=== PATIENT | male | born 1955 | race Two or more races ===

== ENCOUNTER 2021-02-17 07:45 | Inpatient (IN) | payer OTHER ==
[~2021-02-17] VITALS: Ht 170.2 cm; Wt 108.9 kg
[2021-02-18] MEDS ORDERED: AMLODIPINE PO (08:55)
[2021-02-18] MEDS ORDERED: TENORMIN25 MG PO (08:55)
[2021-02-18] MEDS ORDERED: CARDESARTAN PO (08:57)
[2021-02-25] MEDS ORDERED: CLONAZEPAM0.5 MG (07:54)
[2021-02-25] MEDS ORDERED: BUPROPION XL150 MG (07:54)
[2021-02-25] MEDS ORDERED: OLANZAPINE-FLU1 EAC3 (07:54)
[2021-02-25] MEDS ORDERED: ADULT ASPIRIN81 MG (07:55)
[2021-02-25] MEDS ORDERED: PANADOL EXTRA500 MG (07:55)
[2021-02-25] MEDS ORDERED: FENOFIBRATE145 MG (07:55)
[2021-02-25] MEDS ORDERED: AMLODIPINE BESY10 MG (07:55)
[2021-02-25] MEDS ORDERED: TAMSULOSIN HCL0.4 MG (07:56)
[2021-02-25] MEDS ORDERED: OXYBUTYNIN CHLO10 MG (07:56)
[2021-02-25] MEDS ORDERED: CANDESARTAN-HC1 EAC1 (07:56)
[2021-02-27] MEDS ORDERED: ELIQUIS2.5 MG PO (11:37)
[2021-02-27] MEDS ORDERED: PERCOCET 5-3251 EACH PO (11:37)
[2021-02-27] MEDS ORDERED: DUI500 PO (11:37)
== END 2021-02-27 14:52 | DRG 470 ==
LOC: O/R 02-25 05:41 → SURH 02-25 05:41
PROVIDERS: ADMIT Orthopaedic Surgery; ATTEND Orthopaedic Surgery
PROC: 0SRD0J9 Replacement of Left Knee Joint with Synthetic Substitute, Cemented, Open Approach (ICD-10-PCS; principal; 2021-02-25 07:00)
PROC: 0YQGXZZ Repair Left Knee Region, External Approach (ICD-10-PCS; 2021-02-26)
DX: M17.12 Unilateral primary osteoarthritis, left knee (principal); D62 Acute posthemorrhagic anemia; I10 Essential (primary) hypertension; S81.002A Unspecified open wound, left knee, initial encounter; W18.39XA Other fall on same level, initial encounter; Y93.01 Activity, walking, marching and hiking; Y92.239 Unspecified place in hospital as the place of occurrence of the external cause

== ENCOUNTER 2021-03-09 22:07 | Emergency (ER) | payer OTHER ==
[~2021-03-09] VITALS: Ht 170.2 cm; Wt 108.9 kg
[~2021-03-09 22:07] MED LIST: ADULT ASPIRIN81 MG; AMLODIPINE BESY10 MG; AMLODIPINE PO; BUPROPION XL150 MG; CANDESARTAN-HC1 EAC1; CARDESARTAN PO; CLONAZEPAM0.5 MG; DUI500 PO; ELIQUIS2.5 MG PO; FENOFIBRATE145 MG; OLANZAPINE-FLU1 EAC3; OXYBUTYNIN CHLO10 MG; PANADOL EXTRA500 MG; PERCOCET 5-3251 EACH PO; TAMSULOSIN HCL0.4 MG; TENORMIN25 MG PO
== END 2021-03-10 14:10 | disposition home or self-care (01) ==
LOC: ER 22:07
DX: T81.41XA Infection following a procedure, superficial incisional surgical site, initial encounter (principal); L76.34 Postprocedural seroma of skin and subcutaneous tissue following other procedure; L02.416 Cutaneous abscess of left lower limb; B95.2 Enterococcus as the cause of diseases classified elsewhere; M13.862 Other specified arthritis, left knee; D62 Acute posthemorrhagic anemia; E78.2 Mixed hyperlipidemia; Z96.652 Presence of left artificial knee joint

== ENCOUNTER 2021-03-27 01:24 | Inpatient (IN) | payer OTHER ==
[~2021-03-27] VITALS: Ht 170.2 cm; Wt 108.9 kg
[2021-03-27] MEDS ORDERED: ATACAND HCT 321 EAC1 (01:30)
[2021-03-27] MEDS ORDERED: TRICOR145 MG (01:31)
--- NOTE | 2021-03-27 01:31 | NUR ---
SE RECIBE PTE ALERTA Y ORIENMTADO POR LANCE. PTE REFIERE MANA SUFRIDO MAREO Y MALESTAR A LAS 12:00PM Y INDICA QUE RODILLA IZQUIERDA ESTA HINCHADA, CALIENTE Y SUPURANDO. INDICA QUE FUE OPERADA POR FUEMERO EL 18 DE GALVAN EL CUAL LE REALIZO UN REEMPLAZO DE RODILLA. PTE PRESENTA TEMPERATURA ELEVADA (103.7).
--- NOTE | 2021-03-27 02:43 | NUR ---
SE ORIENTA SOBRE TX MEDICO EL CUAL REFIERE ENTENDER.SE LE EXTRAEN MUESTRAS BAJO MEDIDAS ASEPTICAS,SE CANALIZA Y SE ADMINISTRAN MEDICAENTOS JEWEL ORDEN MEDICA.SE NOTIFICA PLACA PENDIENTE.
--- NOTE | 2021-03-27 07:31 | NUR ---
SE RECIBE PTE. ALERTA Y ORIENTADO EN IVONNE LANCE ESFERAS, EN SHARMAINE CON BARANDAS ELEVADAS POR SEGURIDAD, CON BUEN PATRON RESPIRATORIO. SE OBSERVA CON CON TERAPIA INTRAVENOSA 0.9 NSS 1000 ML BAJANDO 125ML/HR. AREA DE VENOPUNCION VIKTOR DE EDEMA Y ERITEMA. PEND. CONSULTA CON EL DR. GRANT. SE MANTIENE BAJO OBSERVACION POR CAMBIOS SIGNIFICATIVOS.
[2021-03-27] MEDS ORDERED: BUPROPION XL300 MG (11:41)
== END 2021-04-04 12:49 | DRG 467 ==
LOC: ER 01:24 → O/R 07:42 → SEC-K 07:42 → O/R 14:54 → SURG 20:09
PROVIDERS: ADMIT Orthopaedic Surgery; ATTEND Orthopaedic Surgery
PROC: 0SRD0J9 Replacement of Left Knee Joint with Synthetic Substitute, Cemented, Open Approach (ICD-10-PCS; 2021-03-27)
PROC: 0SPD0JZ Removal of Synthetic Substitute from Left Knee Joint, Open Approach (ICD-10-PCS; principal; 2021-03-27 16:45)
DX: T84.54XA Infection and inflammatory reaction due to internal left knee prosthesis, initial encounter (principal); D62 Acute posthemorrhagic anemia; I10 Essential (primary) hypertension; E78.2 Mixed hyperlipidemia; N40.0 Benign prostatic hyperplasia without lower urinary tract symptoms; Z20.822 Contact with and (suspected) exposure to COVID-19

== ENCOUNTER 2024-05-22 08:00 | Inpatient (IN) | payer OTHER ==
[~2024-05-22] VITALS: Ht 170.2 cm; Wt 106.6 kg
[~2024-05-22 08:00] MED LIST changes: +ATACAND HCT 321 EAC1; +BUPROPION XL300 MG; +TRICOR145 MG
[2024-05-22 09:12] LABS: HEMATOCRIT 39.1 % (39.0-48.0); MEAN CELL VOLUME 87.9 fL (80.0-100.00); MEAN CORPUSCULAR HEMOGLOBIN 29.2 pg (27.00-32.0); MEAN CORPUSCULAR HGB CONC 33.2 g/dl (32.0-36.0); PLATELET COUNT 308 K/uL (150-450); RED BLOOD COUNT 4.44 M/uL (4.00-6.00); RED CELL DISTRIBUTION WIDTH 15.3 % (11.5-14.5)
[2024-05-22 09:31] LABS: PH,URINE 7.5 (5.0-8.0); URINE APPEARANCE Turbid; URINE BILIRRUBIN Negative (NEGATIVE); URINE BLOOD Negative; URINE COLOR Yellow; URINE GLUCOSE Negative (NEGATIVE); URINE KETONE Negative (NEGATIVE); URINE LEUKOCYTE Small; URINE NITRATE Negative; URINE PROTEIN Negative (NEGATIVE); URINE UROBILINOGEN 0.2 E.U./dl
[2024-05-22 09:36] LABS: URINE BACTERIA 115.9 uL (0.0-1933); URINE EPITHELIAL CELLS 3.7 uL (0.0-38.8); URINE RBC 9.4 uL (0.0-20.8); URINE WBC 77.3 uL (0.0-23.2)
[2024-05-22 09:38] LABS: INR 1.01; PARTIAL THROMBOPLASTIN TIME 27.9 SECONDS (22.0-34.0); PROTHROMBIN TIME 10.6 SECONDS (9.0-11.5)
[2024-05-22 10:02] LABS: ALBUMIN 4.4 gm/dL (3.4-5.0); BILIRUBIN TOTAL 0.36 mg/dL (0.3-1.2); CALCIUM 10.3 mg/dL (8.5-10.1); CREATININE SERUM 0.95 mg/dL (0.70-1.30); GFR 78.37; GLOBULINA 3.4 G/DL (2.4-3.5); POTASSIUM 4.43 mEq/L (3.5-5.1); TOTAL PROTEIN 7.8 gm/dL (6.4-8.2)
[2024-05-22 10:36] LABS: URINE CAST 1.22 uL (0.0-1.40)
[2024-05-30] MEDS ORDERED: CEFAZOLIN SODIUM 1,000 MG VIAL ONE (11:46)
[2024-05-30] MEDS ORDERED: TRANEXAMIC ACID 100MG/1ML (1000MG) AMPUL IV ONE (11:47)
[2024-05-30] MEDS ORDERED: hydrALAZINE HCL 20 MG VIAL IV PRN (13:30)
[2024-05-30] MEDS ORDERED: BUPIVACAINE HCL/MPF 0.5% 30ML VIAL ONE (14:16)
[2024-05-30] MEDS ORDERED: LIDOCAINE HCL 1%/EPINEPHRINE 20ML VIAL IJ ONE (14:16)
[2024-05-30] MEDS ORDERED: ISOPROPYL ALCOHOL 30 ML OUNCE TOP ONE (14:17)
[2024-05-30] MEDS ORDERED: VANCOMYCIN HCL 1,000 MG VIAL ONE (16:28)
[2024-05-30] MEDS ORDERED: KETOROLAC TROMETHAMINE 60 MG VIAL IM ONE (16:28)
[2024-05-30] MEDS ORDERED: MORPHINE SULFATE 4 MG/ML VIAL IV ONE (16:45)
[2024-05-30] MEDS ORDERED: POVIDONE-IODINE 0.75 OZ PACKET TOP ONE (16:45)
[2024-05-30] MEDS ORDERED: MORPHINE SULFATE 4 MG/ML CARTRIDGE IV PRN (19:45)
[2024-05-30] MEDS ORDERED: ONDANSETRON HCL 2 MG/ML VIAL IV PRN (19:45)
[2024-05-30] MEDS ORDERED: SODIUM CHLORIDE 0.45 % 1,000 ML IV SCH (19:45)
[2024-05-30] MEDS ORDERED: OxyCODONE HCL 5 MG TABLET (ROXICODONE) PO PRN (19:45)
[2024-05-31] MEDS ORDERED: ACETAMINOPHEN 500 MG GEL..CAP PO SCH
[2024-05-31] MEDS ORDERED: GABAPENTIN 300 MG CAPSULE PO ONE (00:04)
[2024-05-31] MEDS ORDERED: ACETAMINOPHEN 500 MG GEL..CAP PO ONE (00:04)
[2024-05-31] MEDS ORDERED: CEFAZOLIN SODIUM 1,000 MG VIAL ONE (00:04)
[2024-05-31] MEDS ORDERED: CEFAZOLIN SODIUM 1,000 MG VIAL IV SCH (01:00)
[2024-05-31] MEDS ORDERED: GABAPENTIN 300 MG CAPSULE PO SCH (01:00)
[2024-05-31 08:28] LABS: HEMATOCRIT 32.8 % (39.0-48.0); HEMOGLOBIN 10.9 g/dL (13-16.00); MEAN CELL VOLUME 86.5 fL (80.0-100.00); MEAN CORPUSCULAR HEMOGLOBIN 28.7 pg (27.00-32.0); MEAN CORPUSCULAR HGB CONC 33.1 g/dl (32.0-36.0); PLATELET COUNT 259 K/uL (150-450); RED BLOOD COUNT 3.79 M/uL (4.00-6.00); RED CELL DISTRIBUTION WIDTH 15.2 % (11.5-14.5)
[2024-05-31] MEDS ORDERED: BUPROPION HCL 150 MG TABLET.SA PO SCH (09:00)
[2024-05-31] MEDS ORDERED: CANDESARTAN CILEXETIL 32 MG TABLET PO SCH (09:00)
[2024-05-31] MEDS ORDERED: HYDROCHLOROTHIAZIDE 12.5 MG CAPSULE PO SCH (09:00)
[2024-05-31] MEDS ORDERED: ATENOLOL 25 MG TABLET PO SCH (09:00)
[2024-05-31] MEDS ORDERED: SENNOSIDES 1 TAB TABLET PO SCH (09:00)
[2024-05-31] MEDS ORDERED: APIXABAN 2.5 MG TABLET PO SCH (09:00)
[2024-05-31] MEDS ORDERED: ELIQUIS2.5 MG PO (09:03)
[2024-05-31] MEDS ORDERED: PERCOCET 5-3251 EACH PO (09:03)
[2024-05-31] MEDS ORDERED: DUI500 PO (09:03)
[2024-05-31] MEDS ORDERED: VITAMIN B COMPLEX 1 EACH PO SCH (12:58)
[2024-05-31] MEDS ORDERED: Cyanocobalamin/Mecobalamin 1 TAB.SL SL SCH (12:59)
[2024-05-31] MEDS ORDERED: SOD FERRIC GLUC COMPLX/SUCROSE 62.5 MG/5 ML AMPUL IV SCH (12:59)
[2024-06-01 08:15] LABS: HEMATOCRIT 32.7 % (39.0-48.0); HEMOGLOBIN 10.9 g/dL (13-16.00); MEAN CELL VOLUME 86.4 fL (80.0-100.00); MEAN CORPUSCULAR HEMOGLOBIN 28.9 pg (27.00-32.0); MEAN CORPUSCULAR HGB CONC 33.4 g/dl (32.0-36.0); PLATELET COUNT 282 K/uL (150-450); RED BLOOD COUNT 3.79 M/uL (4.00-6.00); RED CELL DISTRIBUTION WIDTH 15.3 % (11.5-14.5)
[2024-06-01] MEDS ORDERED: IRON FUM,PS/FOLIC ACID/VITC/B3 1 CAP CAPSULE PO SCH (09:00)
== END 2024-06-01 20:54 | DRG 470 ==
LOC: SURH 05-30 08:00 → O/R 05-30 10:00 → SURG 05-30 19:54
PROVIDERS: ADMIT Orthopaedic Surgery; ATTEND Orthopaedic Surgery
PROC: 0SR90JA Replacement of Right Hip Joint with Synthetic Substitute, Uncemented, Open Approach (ICD-10-PCS; principal; 2024-05-30 10:00)
DX: M16.11 Unilateral primary osteoarthritis, right hip (principal); D62 Acute posthemorrhagic anemia; M25.751 Osteophyte, right hip; M70.61 Trochanteric bursitis, right hip; I10 Essential (primary) hypertension